=== PATIENT | male | born 1980 ===

== ENCOUNTER → 2017-10-10 | Outpatient (CLI) | payer BC | LOC: LAB 14:28 | DX: E11.65 Type 2 diabetes mellitus with hyperglycemia (principal) | CPT/HCPCS: 82043 ==

== ENCOUNTER → 2024-11-18 | Outpatient (CLI) | payer OTHER ==
[2024-11-18 21:25] LABS: Creatinine, Urine Random 53.8 mg/dL (27.00-270.00); Microalb/Creat Ratio UR, Rand 32.714 mg/g (0.000-30.000); Microalbumin, Random Urine 17.6 mg/L (0.000-20.000)
== END ==
LOC: LAB 15:29 → LAB SHORT 15:29
PROVIDERS: Physician Assistant
DX: E11.3411 Type 2 diabetes mellitus with severe nonproliferative diabetic retinopathy with macular edema, right eye (principal); E11.3512 Type 2 diabetes mellitus with proliferative diabetic retinopathy with macular edema, left eye; E11.59 Type 2 diabetes mellitus with other circulatory complications; E11.65 Type 2 diabetes mellitus with hyperglycemia; E11.69 Type 2 diabetes mellitus with other specified complication; Z79.4 Long term (current) use of insulin
CPT/HCPCS: 82043; 82570